=== PATIENT | female | born 1950 | race Caucasian/White ===

== ENCOUNTER → 2022-10-05 | Outpatient (CLI) | payer MEDICARE, OTHER ==
--- NOTE | 2022-10-05 16:53 | Diagnostic Imaging Report ---
PROCEDURE: MR imaging cervical spine without contrast. TECHNIQUE: Multiplanar, multisequence MR imaging of the cervical spine was performed without contrast. INDICATION: Cervical radiculopathy. COMPARISON: None. FINDINGS: Grade 1 retrolisthesis C5 on C6 and C6 on C7. Vertebral body heights are preserved. Modic type I degenerative endplate changes at C5-C7. No abnormal signal in the cervical spinal cord. Visualized paravertebral soft tissues demonstrate no acute findings. Partially visualized posterior instrumentation at the T4 and T5 levels. C2-C3: Uncovertebral facet arthropathy result in moderate right neural foraminal narrowing. No spinal canal narrowing. C3-C4: Uncovertebral and facet arthropathy result in severe right and moderate left neural foraminal narrowing. No spinal canal narrowing. C4-C5: Uncovertebral facet arthropathy result in moderate to severe left and mild right neural foraminal narrowing. No spinal canal narrowing. C5-C6: Retrolisthesis, ligamentous hypertrophy and broad-based disc bulging all result in moderate to severe spinal canal stenosis. Severe bilateral neural foraminal narrowing. C6-C7: Retrolisthesis and ligamentous hypertrophy result in moderate to severe spinal canal stenosis. Severe left and moderate right neural foraminal narrowing. C7-T1: No spinal canal or neural foraminal narrowing. IMPRESSION: 1. 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 No abnormal signal in the cervical spinal cord. 2. Multilevel high-grade neural foraminal narrowing detailed above level by level. 3. No acute osseous findings. Dictated by: Dictated on workstation # [id number]
== END ==
LOC: RAD 14:00
PROVIDERS: ATTEND Family Medicine
DX: M47.22 Other spondylosis with radiculopathy, cervical region (principal); M48.02 Spinal stenosis, cervical region; M43.12 Spondylolisthesis, cervical region; M24.28 Disorder of ligament, vertebrae; M50.122 Cervical disc disorder at C5-C6 level with radiculopathy
CPT/HCPCS: 72141